=== PATIENT | male | born 1950 | race Caucasian/White ===

== ENCOUNTER 2016-09-21 04:48 | Inpatient (IN) | payer MEDICARE, BC ==
[2016-09-10 16:33] LABS: BASOPHILS 0.5 %; BASOPHILS ABSOLUTE 0.04 10/3/uL (0.0-0.16); EOSINOPHILS 4.5 %; EOSINOPHILS ABSOLUTE 0.34 10/3/uL (0.0-0.53); HEMOGLOBIN 13.9 g/dL (13.6-17.8); IMMATURE GRANULOCYTES 0.3 %; IMMATURE GRANULOCYTES ABSOLUTE 0.02 10/3/uL (0.0-0.11); LYMPHOCYTES 32.4 %; LYMPHOCYTES ABSOLUTE 2.43 10/3/uL (0.67-4.30); MEAN CORPUS HGB CONC 34.8 g/dL (32.0-36.0); MEAN CORPUSCULAR HEMOGLOB 31.2 pg (26.0-34.0); MEAN CORPUSCULAR VOLUME 89.7 fL (80-100); MEAN PLATELET VOLUME 9.6 fL (9.2-13.0); MONOCYTES 5.6 %; MONOCYTES ABSOLUTE 0.42 10/3/uL (0.21-1.20); NEUTROPHILS 56.7 %; NEUTROPHILS ABSOLUTE 4.24 10/3/uL (2.02-8.40); PLATELET COUNT 308 10/3/uL (150-400); RBC DISTRIBUTION WIDTH 13.2 % (12.0-16.0); RED CELL COUNT 4.46 10/6/uL (4.7-6.1)
[2016-09-10 16:35] LABS: MANUAL DIFF NO %; PARTIAL THROMBO TIME 35.9 SEC (22.5-37.2); WHITE BLOOD CELLS 7.5 10/3/uL (4.5-10.5)
[2016-09-10 16:36] LABS: PROTIME (NOT ORD) 12.9 SEC (12.0-14.5)
[2016-09-10 16:44] LABS: ALKALINE PHOSPHATASE 112 U/L (45-117); BUN (BLOOD UREA NITROGEN) 13 MG/DL (6-23); CHLORIDE, SERUM 103 MMOL/L (96-112); CO2 (CARBON DIOXIDE) 26 MMOL/L (24-34); CREATININE 1.08 MG/DL (0.70-1.30); GFR AFRICAN AMERICAN 83 ML/MIN (>=60); GFR NON AFRICAN AMERICAN 72 ML/MIN (>=60); GLOBULIN 4.2 G/DL (2.5-4.1); GLUCOSE, SERUM 144 MG/DL (60-99); POTASSIUM, SERUM 3.7 MMOL/L (3.5-5.3); SGOT(AST) 14 U/L (5-40); SGPT(ALT) 23 U/L (5-65); SODIUM, SERUM 140 MMOL/L (135-148); TOTAL BILIRUBIN 0.7 MG/DL (0-1.2); TOTAL PROTEIN 8.2 G/DL (6.0-8.5)
[2016-09-10 17:55] LABS: ASCORBIC ACID (UR NOT ORDER) NEG (NEG); BILIRUBIN, URINE NEGATIVE (NEG); KETONE, URINE NEGATIVE (NEG); LEUKOCYTE ESTERASE(NOT OR LARGE (NEG); WBC (NOT ORDERED) (RFLEX) 16 (0-5)
--- NOTE | ~2016-09-21 | OP ---
Record Of Operation [facility] [address] [place]. [address] NAME: KIRSTEN MADISON JR : 50 STATUS : [facility]M [facility]#: [id number] AGE: 65 ADM/REG DATE : 09/21/16 MR#: [id number] REPORT SERV DATE: 09/21/16 DICTATED BY: SG DE DIOS DATE: 09/21/16 REPORT STATUS : Draft TRANSCRIBED BY: MODL DATE: 09/21/16 DATE OF PROCEDURE: 09/21/2016 PREOPERATIVE DIAGNOSIS: Severe varus osteoarthritis of the left knee. POSTOPERATIVE DIAGNOSIS: Severe varus osteoarthritis of the left knee. PROCEDURE: Left total knee arthroplasty. SURGEON: Sg De Dios M.D. TOOL PUSHER: Sana Alfaro. ANESTHESIA: Spinal with MAC. ESTIMATED BLOOD LOSS: 100 mL. COMPLICATIONS: None. DRAINS: ConstaVac x1. TOURNIQUET TIME: Approximately 70 minutes. IMPLANTS: Diego and Diego Attune size 8 posterior stabilized left femoral component, a size 8 modular tibial tray with a 7 mm thick posterior stabilized tibial polyethylene insert, the patella was a 41 mm patella. All components were cemented in place with [employer] Simplex bead set bone cement. INDICATIONS FOR SURGERY: Mr. Madison is a 65-year-old male with severe varus osteoarthritis of his left knee. He has had unremitting pain, which has been refractory to medical management. He presents requesting the above-mentioned procedure. Risks of the procedure as detailed in the history and physical, and operative consent were discussed prior to proceeding. He fully understood and has requested to proceed. DESCRIPTION OF PROCEDURE: The patient was brought to the operating room and after induction of anesthesia, was positioned in the supine position. All appropriate pressure points were padded. The operative knee was then prepped and draped in the usual sterile fashion. Time out was performed confirming the appropriate surgical side and site. The leg was exsanguinated with an Jose wrap and the tourniquet inflated to 350 mmHg pressure. A medial parapatellar approach to the knee was performed. The skin and cutaneous tissues were incised sharply in the midline with a #10 blade. Electrocautery was used as needed to maintain hemostasis. The retinaculum was divided and the extensor mechanism exposed. A median parapatellar arthrotomy was carried out. The medial tibia was exposed subperiosteally and the patellofemoral ligaments divided. The patella was then subluxated laterally and the knee carefully flexed. The knee was Record Of Operation [place] [id number] [place]. [address] NAME: KIRSTEN MADISON JR : 50 STATUS : ADM IN PAT#: [id number] AGE: 65 ADM/REG DATE : 09/21/16 MR#: [id number] REPORT SERV DATE: 09/21/16 DICTATED BY: SG DE DIOS DATE: 09/21/16 REPORT STATUS : Draft TRANSCRIBED BY: MODMark DATE: 09/21/16 d brided of all osteophytes, meniscal remnants in the anterior and posterior cruciate ligaments. Attention was then turned to the distal femur. The intramedullary guide was set at 5 degrees of valgus and secured to the distal femur. The distal femoral resection was then carried out. The femur was then sized to the appropriate block as determined intraoperatively and from templating. The AP cutting block was secured in such a way as to create matched distal and posterior femoral resections in the appropriate rotation. The anterior and posterior femoral cuts were made, chamfer cuts were completed and the box was created for the posterior stabilized femoral component. Attention was then turned to the tibia. The extramedullary alignment guide was set a neutral varus/valgus to match the patient's [place] posterior tibial slope. The tibia was resected, removing 2 to 3 mm, from the most affected side. The tibial fragment was then removed. Attention was then turned to the posterior aspect of the knee and any remaining posterior femoral osteophytes or meniscal remnants were d brided. The patella was then everted and a uniform resection created taking the thickness of the planned patellar component. The cut was checked with a caliper to be sure of the appropriate resection level. The patella was then finally sized and three holes drilled for an oval domed three peg patella. At this point, the varus/valgus alignment of the knee was accessed. The appropriate releases were performed to balance the knee. A trial reduction was performed. The knee came to a full extension. There was 2 to 3 mm of opening to both varus and valgus stress at 30 and 90 degrees of flexion and normal patellar tracking. At this point, all trial components were removed and the final tibial preparation performed. The bony surfaces were copiously irrigated with normal saline and dried and the final components cemented in place. Once the cement had fully cured, the knee was carefully inspected and all extruded cement fragments were removed. A trial reduction was once again performed. Range of motion and stability of the knee were unchanged. The true tibial insert was then impacted in the clean tibial tray. A drain was placed deep through the arthrotomy and the knee was once again irrigated with pulsatile lavage normal saline. The arthrotomy was repaired using interrupted 1-0 Vicryl suture in a [id number] fashion. The subcutaneous tissues were approximated with interrupted 2-0 Vicryl suture, the skin stapled. A sterile dressing was applied. The tourniquet was deflated and the patient was taken to the Recovery Room in stable condition. POSTOP PLAN: The patient is to be weightbearing as tolerated with physical therapy to be started per total knee arthroplasty protocol. The patient will be on Coumadin and mechanical deep venous thrombosis prophylaxis. APRIL/IRMA Sg Record Of Operation [address] [place]. [address] NAME: KIRSTEN MADISON JR : 50 STATUS : [facility]M [facility]#: [id number] AGE: 65 ADM/REG DATE : 09/21/16 MR#: [id number] REPORT SERV DATE: 09/21/16 DICTATED BY: SG DE DIOS DATE: 09/21/16 REPORT STATUS : Draft TRANSCRIBED BY: IRMA DATE: 09/21/16 Reji De Dios / [id number] CC: Reji Mcelroy M.D.
[~2016-09-21 04:48] MED LIST: ACET500CAP PO; ADVIL PO; ALLEGRA180 PO; APRES25 PO; APRES50 PO; ASA5GR PO; ASABAYER PO; AUG500 PO; C5; FISH-EPA1000 MG PO; FLONASE NAS; GLUCPH PO; HYDROCHLOROT12.5 MG PO; LIPITOR20 PO; LISINOPRIL40 MG PO; LOP50 PO; NEUR600 PO; NORV5 PO; PERCOCET1 TA2 PO; PROBIOTIC PO; PROBIOTICS PO; TOPXL50 PO; Z300 PO
[2016-09-22 05:01] LABS: HEMATOCRIT 30.9 % (40.0-51.0); HEMOGLOBIN 10.7 g/dL (13.6-17.8)
[2016-09-22 05:07] LABS: INTERNATIONAL NORMAL RATI 1.1 UNITS (-); PROTIME (NOT ORD) 14.2 SEC (12.0-14.5)
[2016-09-22 05:15] LABS: CALCIUM, SERUM 8.3 MG/DL (8.5-10.4); CHLORIDE, SERUM 103 MMOL/L (96-112); CO2 (CARBON DIOXIDE) 23 MMOL/L (24-34); CREATININE 1.47 MG/DL (0.70-1.30); GFR AFRICAN AMERICAN 57 ML/MIN (>=60); GFR NON AFRICAN AMERICAN 49 ML/MIN (>=60); SODIUM, SERUM 135 MMOL/L (135-148)
[2016-09-22 05:18] LABS: BUN (BLOOD UREA NITROGEN) 19 MG/DL (6-23); GLUCOSE, SERUM 195 MG/DL (60-99); POTASSIUM, SERUM 4.7 MMOL/L (3.5-5.3)
[2016-09-22] MEDS ORDERED: C5 PO (16:11)
[2016-09-22] MEDS ORDERED: OXYCOD PO (16:11)
== END 2016-09-22 16:38 | disposition home or self-care (01) | DRG 470 ==
LOC: SDC/OF 04:48 → PACU 09:25 → 3JRC 10:18
PROVIDERS: Family Medicine; Specialist
PROC: 3E0T3CZ (ICD-10-PCS; 2016-09-21)
PROC: 0SRD0J9 Replacement of Left Knee Joint with Synthetic Substitute, Cemented, Open Approach (ICD-10-PCS; principal; 2016-09-21 06:30)
DX: M17.12 Unilateral primary osteoarthritis, left knee (principal); I10 Essential (primary) hypertension; Z79.899 Other long term (current) drug therapy; Z79.82 Long term (current) use of aspirin; E11.9 Type 2 diabetes mellitus without complications; Z96.651 Presence of right artificial knee joint; Z98.890 Other specified postprocedural states; M10.9 Gout, unspecified; G47.33 Obstructive sleep apnea (adult) (pediatric); E66.9 Obesity, unspecified; Z68.33 Body mass index [BMI] 33.0-33.9, adult
CPT/HCPCS: 36415; 80048; 80053; 81001; 82962; 83036; 85014; 85018; 85025; 85610; 85730; 86850; 86900; 86901; 87086; 87641; 88305; 88311; 93005; 97116-GP; 97150-GP; 97161-GP; 97165-GO; A9270-GY; C1776; G8978-CJ-GP; G8979-CH-GP; J0690; J1170; J1885; J2250; J2274; J2405; J2795; J3010; J3370